=== PATIENT | male | born 1985 | race American Indian/Alaskan Native ===

== ENCOUNTER 2017-07-06 14:44 | Inpatient (IN) | payer SELFPAY ==
--- NOTE | 2017-07-06 15:46 | C.PDOC ---
History Of Present Illness 32 year old male with PMHx of skin cancer and DVT presents to the ED for evaluation of swelling to his left leg. Patient states he has psoriasis in his left foot and some of it is cancerous, patient reports he is using some topical cancer drug for it. Patient reports he recently moved from [place] and currently does not have any doctor up here. Patient states he left leg is swollen and think he might have a blood clot in there. Patient denies fever, chills, nausea, vomit, diarrhea, headache, CP, SOB, weakness, numbness. Time Seen by Provider: 07/06/17 15:11 Chief Complaint (Nursing): Lower Extremity Problem/Injury History Per: Patient History/Exam Limitations: no limitations Onset/Duration Of Symptoms: Days Current Symptoms Are (Timing): Still Present Recent travel outside of the [place]: No Additional History Per: Patient Past Medical History Reviewed: Historical Data, Nursing Documentation, Vital Signs Vital Signs: Last Vital Signs Temp 98.6 F 07/06/17 14:57 Pulse 86 07/06/17 14:57 Resp 18 07/06/17 14:57 BP 122/70 07/06/17 14:57 Pulse Ox 100 07/06/17 18:41 - Medical History PMH: No Chronic Diseases Surgical History: No Surg Hx Family History: States: Unknown Family Hx - Social History Hx Alcohol Use: Yes Hx Substance Use: No - Immunization History Hx Tetanus Toxoid Vaccination: No Hx Influenza Vaccination: No Hx Pneumococcal Vaccination: No Review Of Systems Constitutional: Negative for: Fever, Chills Cardiovascular: Negative for: Chest Pain, Palpitations Respiratory: Negative for: Cough, Shortness of Breath Gastrointestinal: Negative for: Nausea, Vomiting, Abdominal Pain Musculoskeletal: Positive for: Leg Pain. Negative for: Back Pain Skin: Negative for: Rash Neurological: Negative for: Weakness, Numbness Physical Exam - Physical Exam Appears: Non-toxic, No Acute Distress Skin: Normal Color, Warm, Dry Head: Atraumatic, Normacephalic Nose: No Discharge, No Deformity Oral Mucosa: Moist Neck: Normal ROM, Supple Chest: Symmetrical Cardiovascular: Rhythm Regular, No Murmur Respiratory: Normal Breath Sounds, No Rales, No Rhonchi, No Wheezing Gastrointestinal/Abdominal: Soft, No Tenderness, No Guarding, No Rebound Extremity: Normal ROM, Calf Tenderness (left leg), Capillary Refill (< 2 seconds ), No Deformity, Swelling (left leg), Other (dressing on left foot) Pulses: Left Dorsalis Pedis: Normal, Right Dorsalis Pedis: Normal Neurological/Psych: Oriented x3, Normal Speech, Normal Cognition ED Course And Treatment - Laboratory Results Result Diagrams: 07/06/17 16:48 07/06/17 16:48 Lab Interpretation: Normal O2 Sat by Pulse Oximetry: 100 (On RA) Pulse Ox Interpretation: Normal Progress Note: Patient reports he just moved to [place] from [place] and does not have any insurance or MD in area. Doppler study (+) DVT left posterior tibial. Case discussed with hospitalist who agrees to admit. treated with heparin bolus and drip Reassessment Condition: Unchanged - Physician Consult Information Physician Contacted: Dago Damon Outcome Of Conversation: admit Medical Decision Making Medical Decision Making: Impression : swollen left leg Plan: * Labs * UA * Venous Duplex Disposition Discussed With Dr.: Dago Damon Doctor Will See Patient In The: Hospital - Disposition Disposition: HOSPITALIZED Disposition Time: 17:00 Condition: STABLE - POA Present On Arrival: None - Clinical Impression Clinical Impression: Deep venous thrombosis of lower extremity - PA / [employer] / Resident Statement MD/DO has reviewed & agrees with the documentation as recorded. - Scribe Statement The provider has reviewed the documentation as recorded by the Scribe Sukhwinder Ramos All medical record entries made by the Scribe were at my direction and personally dictated by me. I have reviewed the chart and agree that the record accurately reflects my personal performance of the history, physical exam, medical decision making, and the department course for this patient. I have also personally directed, reviewed, and agree with the discharge instructions and disposition. Decision To Admit - Pt Status Changed To: Hospital Disposition Of: Inpatient - Admit Certification Admit to Inpatient:: After my assessment, the patient will require hospitalization for at least two midnights. This is because of the severity of symptoms shown, intensity of services needed, and/or the medical risk in this patient being treated as an outpatient. - InPatient: Physician Admission Certification: I certify that this patient requires 2 or more midnights of care for the following reason:: DVT left leg - . Bed Request Type: Regular Admitting Physician: Dago Damon Patient Diagnosis: Deep venous thrombosis of lower extremity
[2017-07-06 16:52] LABS: BASO % 0.4 % (0.0-2.0); EOS # 0.4 K/uL (0.0-0.7); EOS % 5.3 % (0.0-4.0); HEMOGLOBIN 11.6 g/dL (12.0-18.0); LYMPH # 1.2 K/uL (1.0-4.3); LYMPH % 16.1 % (20.0-40.0); MEAN CELL VOLUME 76.8 fL (80.0-94.0); MEAN CORPUSCULAR HEMOGLOBIN 23.8 pg (27.0-31.0); MEAN PLATELET VOLUME 7.3 fL (7.2-11.7); MONO # 0.7 K/uL (0.0-0.8); MONO % 9.4 % (0.0-10.0); NEUT # 5.3 K/uL (1.8-7.0); NEUT % 68.8 % (50.0-75.0); NRBC % 0.1 % (0.0-2.0); RBC 4.86 Mil/uL (4.40-5.90); RED CELL DISTRIBUTION WIDTH 16.4 % (11.5-14.5); WHITE BLOOD COUNT 7.7 K/uL (4.8-10.8)
[2017-07-06 16:57] LABS: PROTHROMBIN TIME 11.7 SECONDS (9.7-12.2)
[2017-07-06] MEDS ORDERED: Heparin 25,000units in D5W 25,000 UNITS/250 ML BAG IV SCH (16:58)
[2017-07-06 17:04] LABS: ALB/GLOB RATIO 0.8 (1.0-2.1); ALBUMIN 3.6 g/dL (3.5-5.0); ALT/SGPT 49 U/L (21-72); AST/SGOT 43 U/L (17-59); BLOOD UREA NITROGEN 12 mg/dL (9-20); CALCIUM 7.9 mg/dl (8.6-10.4); GFR AFRICAN-AMERICAN > 60; GFR NON-AFRICAN AMERICAN > 60
[2017-07-06 17:23] LABS: URINE BACTERIA OCC (<OCC); URINE BILIRUBIN NEGATIVE (NEGATIVE); URINE BLOOD 1+ (NEGATIVE); URINE CLARITY Clear (Clear); URINE COLOR Yellow (YELLOW); URINE GLUCOSE (UA) NORMAL (Normal); URINE LEUKOCYTE ESTERASE TRACE Leu/uL (Negative); URINE NITRATE NEGATIVE (NEGATIVE); URINE PROTEIN NEGATIVE (NEGATIVE); URINE UROBILINOGEN NORMAL mg/dL (0.2-1.0)
--- NOTE | 2017-07-06 23:21 | CP.PCM.HP ---
<Jerome Newby - Last Filed: 07/07/17 07:02> History of Present Illness - History of Present Illness History of Present Illness: PGY-1 H&P for Dr. Prater CC: Left leg swelling This is a 32 year old male with PMHx Mycosis fungoides stage 2, psoriasis, eczema who presents complaining of left leg swelling. This began 3 days ago. Patient denied any trauma or inciting event but stated that he had a "charley horse" in the leg before he noticed the swelling. Patient states that he is not experiencing pain due to his DVT but usually experiences pains from his cancerous lesions on the feet. Patient states that they are usually a 6/10 and relieved with Ibuprofen. He stated that he does not regularly take NSAIDs. They are exacerbated with prolonged standing and ambulation. Due to this, he wears Dr. Borrego shoes especially at work. Patient denies other acute complaints at this time. Patient states that he has had a blood clot in the past in the left leg on the inner thigh but was not prescribed medication for it. This occurred in the summer of 2016. Patient was diagnosed with mycosis fungoides in January 2016 when he was admitted to [facility] in [place], [place] for sepsis with likely source from his skin. PMHx: Mycosis fungoides stage 2 (diagnosed January 2016), psoriasis, eczema, Left inner thigh DVT in Summer 2016 PSHx: Left ankle surgery in 2010 Allergies: Chocolate Social: Former smoker 1 pack every 2 weeks. Quit in 2016. Social drinker on weekends. 6-7 shots of vodka but not every weekend. Denies drug use. Lives with . Works as improvement nurse worker. Recently moved to [place] from [place]. Family Hx: Mother has heart issues. Grandparents on both sides of the family due to colon cancer in their 60s and 70s. Oncologist: Dr. Gorman in [place], [place]. Home meds: Clobetasol 0.05% cream TID to his affected lesions Present on Admission - Present on Admission Any Indicators Present on Admission: Yes History of DVT/PE: Yes Review of Systems - Constitutional Constitutional: absent: Chills, Fever - EENT Eyes: absent: Change in Vision Ears: absent: Decreased Hearing Nose/Mouth/Throat: absent: Nasal Congestion - Cardiovascular Cardiovascular: absent: Chest Pain - Respiratory Respiratory: absent: Dyspnea - Gastrointestinal Gastrointestinal: absent: Abdominal Pain, Constipation, Diarrhea, Nausea, Vomiting - Genitourinary Genitourinary: absent: Dysuria - Musculoskeletal Musculoskeletal: Other (foot pain from lesions) - Integumentary Integumentary: Lesions (chronic), Swelling (left leg) - Neurological Neurological: absent: Numbness, Tingling, Weakness - Psychiatric Psychiatric: absent: Anxiety - Endocrine Endocrine: absent: Fatigue, Palpitations Past Patient History - Past Social History Smoking Status: Former Smoker - INTEGUMENTARY Hx Dermatological Problems: Yes Other/Comment: STAGE II SKIN CANCER - PSYCHIATRIC Hx Substance Use: No - SURGICAL HISTORY Hx Surgeries: Yes Other/Comment: LEFT ANKLE SX Meds Allergies/Adverse Reactions: Allergies Allergy/AdvReac Type Severity Reaction Status Date / Time chocolate flavor Allergy Severe RASH Verified 07/06/17 15:00 Physical Exam - Constitutional Appears: No Acute Distress - Head Exam Head Exam: ATRAUMATIC, NORMOCEPHALIC - Eye Exam Eye Exam: EOMI, PERRL - ENT Exam ENT Exam: Mucous Membranes Moist - Respiratory Exam Respiratory Exam: Clear to Auscultation Bilateral. absent: Rales, Rhonchi, Wheezes - Cardiovascular Exam Cardiovascular Exam: REGULAR RHYTHM, +S1, +S2 - GI/Abdominal Exam GI & Abdominal Exam: Normal Bowel Sounds, Soft. absent: Tenderness Additional comments: obese body habitus - Extremities Exam Extremities exam: Positive for: pedal edema (left leg), pedal pulses present. Negative for: tenderness - Neurological Exam Neurological exam: Alert, CN II-XII Intact, Oriented x3 - Psychiatric Exam Psychiatric exam: Normal Affect, Normal Mood - Skin Additional comments: Lesions on both soles of the feet demonstrate mycosis fungoides. Lesions on both inner thighs represent keratosis. Lesions on the armpits and chest demonstrate mix of mycosis fungoides and eczema. Keratosis on the wrists. Fullness in the left groin palpated with deep palpation. Results - Vital Signs Recent Vital Signs: Last Vital Signs Temp 98.5 F 07/06/17 22:34 Pulse 77 07/06/17 22:34 Resp 20 07/06/17 22:34 BP 119/65 07/06/17 22:34 Pulse Ox 100 07/06/17 22:34 - Labs Result Diagrams: 07/06/17 16:48 07/06/17 16:48 Labs: Laboratory Results - last 24 hr 07/06/17 07/06/17 07/06/17 16:48 16:48 16:48 WBC 7.7 RBC 4.86 Hgb 11.6 L Hct 37.3 MCV 76.8 L MCH 23.8 L MCHC 31.0 L RDW 16.4 H Plt Count 333 MPV 7.3 Neut % (Auto) 68.8 Lymph % (Auto) 16.1 L Mcdonald % (Auto) 9.4 Eos % (Auto) 5.3 H Baso % (Auto) 0.4 Neut # 5.3 Lymph # 1.2 Mcdonald # 0.7 Eos # 0.4 Baso # 0.0 PT 11.7 INR 1.0 Sodium 134 Potassium 3.8 Chloride 104 Carbon Dioxide 24 Anion Gap 10 BUN 12 Creatinine 0.8 Est GFR ( Amer) > 60 Est GFR (Non-Af Amer) > 60 Random Glucose 99 Calcium 7.9 L Total Bilirubin 0.3 AST 43 ALT 49 Alkaline Phosphatase 56 Total Protein 8.0 Albumin 3.6 Globulin 4.4 H Albumin/Globulin Ratio 0.8 L Urine Color Urine Clarity Urine pH Ur Specific [place] Urine Protein Urine Glucose (UA) Urine Ketones Urine Blood Urine Nitrate Urine Bilirubin Urine Urobilinogen Ur Leukocyte Esterase Urine WBC (Auto) Urine RBC (Auto) Urine Bacteria 07/06/17 17:01 WBC RBC Hgb Hct MCV MCH MCHC RDW Plt Count MPV Neut % (Auto) Lymph % (Auto) Mcdonald % (Auto) Eos % (Auto) Baso % (Auto) Neut # Lymph # Mcdonald # Eos # Baso # PT INR Sodium Potassium Chloride Carbon Dioxide Anion Gap BUN Creatinine Est GFR ( Amer) Est GFR (Non-Af Amer) Random Glucose Calcium Total Bilirubin AST ALT Alkaline Phosphatase Total Protein Albumin Globulin Albumin/Globulin Ratio Urine Color Yellow Urine Clarity Clear Urine pH 6.0 Ur Specific [place] 1.020 Urine Protein Negative Urine Glucose (UA) Normal Urine Ketones Negative Urine Blood 1+ H Urine Nitrate Negative Urine Bilirubin Negative Urine Urobilinogen Normal Ur Leukocyte Esterase Trace Urine WBC (Auto) 2 Urine RBC (Auto) 18 H Urine Bacteria Occ H Assessment & Plan - Assessment and Plan (Free Text) Plan: Deep Vein Thrombosis US preliminary reading demonstrated left posterior tibial DVT Was on Heparin drip in the ED. This was discontinued and switched to Eliquis. Started Eliquis 10 mg PO BID in the evening of admission. Per guidelines, patient will need 1 week of this dose of Eliquis before transitioning to 5 mg PO BID. Left groin mass As reported in preliminary ultrasound. F/u official US report Of note on the same extremity, patient states that he had a clot in the left inner thigh for which he was not prescribed medication. Unclear whether that clot was superficial or not. History of Mycosis Fungoides Stage 2 per patient Continued home Clobetasol 0.05% cream TID Oncologist Dr. Strickland consulted, help appreciated Due to weakening of skin caused by the use of corticosteroids, patient was placed on Doxycycline 100 mg PO BID. Per patient, he also used to be on this in the past. Prophylactic Measure Eliquis 10 mg PO BID Protonix 40 mg PO daily Regular diet SCDs contraindicated Case DW Dr. Moi Newby PGY-1 <Ibrahima Prater P - Last Filed: 07/07/17 08:09> Results - Vital Signs Recent Vital Signs: Last Vital Signs Temp 97.8 F 07/07/17 06:32 Pulse 79 07/07/17 06:32 Resp 17 07/07/17 06:32 BP 108/66 07/07/17 06:32 Pulse Ox 100 07/07/17 06:32 - Labs Result Diagrams: 07/06/17 16:48 07/06/17 16:48 Labs: Laboratory Results - last 24 hr 07/06/17 07/06/17 07/06/17 16:48 16:48 16:48 WBC 7.7 RBC 4.86 Hgb 11.6 L Hct 37.3 MCV 76.8 L MCH 23.8 L MCHC 31.0 L RDW 16.4 H Plt Count 333 MPV 7.3 Neut % (Auto) 68.8 Lymph % (Auto) 16.1 L Mcdonald % (Auto) 9.4 Eos % (Auto) 5.3 H Baso % (Auto) 0.4 Neut # 5.3 Lymph # 1.2 Mcdonald # 0.7 Eos # 0.4 Baso # 0.0 PT 11.7 INR 1.0 APTT Sodium 134 Potassium 3.8 Chloride 104 Carbon Dioxide 24 Anion Gap 10 BUN 12 Creatinine 0.8 Est GFR ( Amer) > 60 Est GFR (Non-Af Amer) > 60 Random Glucose 99 Calcium 7.9 L Total Bilirubin 0.3 AST 43 ALT 49 Alkaline Phosphatase 56 Total Protein 8.0 Albumin 3.6 Globulin 4.4 H Albumin/Globulin Ratio 0.8 L Urine Color Urine Clarity Urine pH Ur Specific [place] Urine Protein Urine Glucose (UA) Urine Ketones Urine Blood Urine Nitrate Urine Bilirubin Urine Urobilinogen Ur Leukocyte Esterase Urine WBC (Auto) Urine RBC (Auto) Urine Bacteria 07/06/17 07/07/17 17:01 00:02 WBC RBC Hgb Hct MCV MCH MCHC RDW Plt Count MPV Neut % (Auto) Lymph % (Auto) Mcdonald % (Auto) Eos % (Auto) Baso % (Auto) Neut # Lymph # Mcdonald # Eos # Baso # PT INR APTT 65 H Sodium Potassium Chloride Carbon Dioxide Anion Gap BUN Creatinine Est GFR ( Amer) Est GFR (Non-Af Amer) Random Glucose Calcium Total Bilirubin AST ALT Alkaline Phosphatase Total Protein Albumin Globulin Albumin/Globulin Ratio Urine Color Yellow Urine Clarity Clear Urine pH 6.0 Ur Specific [place] 1.020 Urine Protein Negative Urine Glucose (UA) Normal Urine Ketones Negative Urine Blood 1+ H Urine Nitrate Negative Urine Bilirubin Negative Urine Urobilinogen Normal Ur Leukocyte Esterase Trace Urine WBC (Auto) 2 Urine RBC (Auto) 18 H Urine Bacteria Occ H Attending/Attestation - Attestation I have personally seen and examined this patient.: Yes I have fully participated in the care of the patient.: Yes I have reviewed all pertinent clinical information: Yes Notes (Text): Assessment * New left PT DVT * ? left groin mass will f/u usg findings with radiology * H/o mycosis fungoides lessions, eczema, ? psoriasis, patient knows where mycosis fungoides lesions local colbetasol 0.05% tid. Plan * Eliquis 10mg bid x7d, then 5mg bid * Empiric 5-7 days of doxycycline as skin break present form skin lesions with edema form dvt * Hematology consult * Out patient dermatology f/u * F/u on left groin mass report.
[2017-07-07] MEDS: Pantoprazole 40 mg EC Tab PO SCH (10:14)
[2017-07-07 10:55] LABS: BASO % 0.7 % (0.0-2.0); EOS # 0.4 K/uL (0.0-0.7); EOS % 5.5 % (0.0-4.0); HEMOGLOBIN 11.6 g/dL (12.0-18.0); LYMPH # 1.1 K/uL (1.0-4.3); LYMPH % 16.6 % (20.0-40.0); MEAN CELL VOLUME 76.6 fL (80.0-94.0); MEAN CORPUSCULAR HEMOGLOBIN 24.2 pg (27.0-31.0); MEAN CORPUSCULAR HGB CONC 31.6 g/dL (33.0-37.0); MONO # 0.7 K/uL (0.0-0.8); MONO % 10.9 % (0.0-10.0); NEUT # 4.3 K/uL (1.8-7.0); NEUT % 66.3 % (50.0-75.0); RBC 4.79 Mil/uL (4.40-5.90); RED CELL DISTRIBUTION WIDTH 16.5 % (11.5-14.5); WHITE BLOOD COUNT 6.4 K/uL (4.8-10.8)
[2017-07-07 12:08] LABS: ALB/GLOB RATIO 0.8 (1.0-2.1); ALBUMIN 3.5 g/dL (3.5-5.0); ALT/SGPT 52 U/L (21-72); AST/SGOT 46 U/L (17-59); BLOOD UREA NITROGEN 7 mg/dL (9-20); CALCIUM 7.7 mg/dl (8.6-10.4); GFR AFRICAN-AMERICAN > 60; GFR NON-AFRICAN AMERICAN > 60
--- NOTE | 2017-07-07 13:37 | VASCLAB ---
PROCEDURE: Lower Extremity Venous Duplex Exam. HISTORY: pain PRIORS: None. TECHNIQUE: Bilateral common femoral, femoral, popliteal and posterior tibial, peroneal and great saphenous veins were evaluated. Flow was assessed with color Doppler, compressibility, assessment of phasic flow and augmentation response. Report prepared by REINALDO Mayorga, RVT FINDINGS: RIGHT: 1. Common Femoral Vein: 1.1. Compressibility - Fully compressible: Thrombus - None : Flow - Phasic: Augmentation -Normal: Reflux - None. 2. Femoral Vein: 2.1. Compressibility - Fully compressible: Thrombus - None : Flow - Phasic: Augmentation -Normal: Reflux - None. 3. Popliteal Vein: 3.1. Compressibility - Fully compressible: Thrombus - None : Flow - Phasic: Augmentation -Normal: Reflux - None. 4. Posterior Tibial Vein: 4.1. Compressibility - Fully compressible: Thrombus - None: Flow - Phasic: Augmentation -Normal: Reflux - None. 5. Peroneal Vein: 5.1. Compressibility - Fully compressible: Thrombus - None: Flow - Phasic: Augmentation -Normal: Reflux - None. 6. Great Saphenous Vein: 6.1. Compressibility - Fully compressible: Thrombus - None: Flow - Phasic: Augmentation - Normal: Reflux - None. LEFT: 1. Common Femoral Vein: 1.1. Compressibility - Fully compressible: Thrombus - None: Flow - Phasic: Augmentation -Normal: Reflux - None. 2. Femoral Vein: 2.1. Compressibility - Fully compressible: Thrombus - None: Flow - Phasic: Augmentation -Normal: Reflux - None. 3. Popliteal Vein: 3.1. Compressibility - Fully compressible: Thrombus - None : Flow - Phasic: Augmentation -Normal: Reflux - None. 4. Posterior Tibial Vein: 4.1. Compressibility - Fully compressible: Thrombus - None: Flow - Phasic: Augmentation -Normal: Reflux - None. 5. Peroneal Vein: 5.1. Compressibility - : Thrombus - : Flow - : Augmentation -: Reflux - . 6. Great Saphenous Vein: 6.1. Compressibility - Fully compressible: Thrombus - None: Flow - Phasic: Augmentation - Normal: Reflux - None. OTHER FINDINGS: Dr. Ocasio notified about the findings. Due to swelling in the calf, the left peroneal vein was not visualized. Multiple vascularlized masses noted in both groin areas. IMPRESSION: Right: No evidence of deep or superficial vein thrombosis of the right lower extremity. Normal valve function noted of the right side. Left: Acute thrombosis of the left posterior tibial vein with severe reduction of the venous return.
--- NOTE | 2017-07-07 15:48 | CP.PCM.CON ---
History of Present Illness - History of Present Illness History of Present Illness: 32 year old male with a history of Mycosis fungoides stage 2 dx 2016 on topical treatment, admitted with left leg pain, found to have an acute tibial DVT. The patient reports to being awoken in the middle of the night 3 days ago with calf cramping. The pain has not abated and prompted him to come to the ER. He denies shortness of breath. He is active and denies prolonged immobility or trauma to his extremities. Past medical history: Mycosis fungoides stage 2 Past surgical history: None Family history: Prostate cancer and colon cancer in grandparents Social history: Drinks 6 beers twice weekly Allergies: NKDA Review of systems: All remaining review of systems including HEENT, cardiovacsular, respiratory, gastrointestinal, genitourinary, musculoskeletal, dermatologic, neurologic, and psychiatric are negative unless mentioned in the HPI. Past Patient History - Past Social History Smoking Status: Former Smoker - CARDIAC Hx Peripheral Edema: Yes - NEUROLOGICAL Hx Vertigo: Yes - HEMATOLOGICAL/ONCOLOGICAL Hx Cancer: Yes Hx Chemotherapy: Yes - INTEGUMENTARY Hx Dermatological Problems: Yes Hx Eczema: Yes Hx Psoriasis: Yes Other/Comment: STAGE II SKIN CANCER - MUSCULOSKELETAL/RHEUMATOLOGICAL Hx Falls: No Hx Fractures: Yes (L ankle with plate and 6 screws) - PSYCHIATRIC Hx Substance Use: No - SURGICAL HISTORY Hx Surgeries: Yes Other/Comment: LEFT ANKLE SX - ANESTHESIA Hx Anesthesia: Yes Hx Anesthesia Reactions: No Hx Malignant Hyperthermia: No Meds Allergies/Adverse Reactions: Allergies Allergy/AdvReac Type Severity Reaction Status Date / Time chocolate flavor Allergy Severe RASH Verified 07/06/17 15:00 - Medications Medications: Current Medications Apixaban (Eliquis) 10 mg PO BID [facility] Last Admin: 07/07/17 10:14 Dose: 10 mg Clobetasol Propionate (Temovate 0.05% Ointment) 1 applic TOP TID [facility] Last Admin: 07/06/17 22:27 Dose: 1 applic Doxycycline Hyclate (Doryx) 100 mg PO Q12H [facility] Last Admin: 07/07/17 12:08 Dose: 100 mg Pantoprazole Sodium (Protonix Ec Tab) 40 mg PO DAILY [facility] Last Admin: 07/07/17 10:14 Dose: 40 mg Pneumococcal Polyvalent Vaccine (Pneumovax 23 Vaccine) 0.5 ml IM .ONCE ONE Stop: 07/09/17 10:01 Physical Exam - Head Exam Head Exam: ATRAUMATIC - Eye Exam Eye Exam: Normal appearance - ENT Exam ENT Exam: Mucous Membranes Dry - Respiratory Exam Respiratory Exam: NORMAL BREATHING PATTERN - Cardiovascular Exam Cardiovascular Exam: +S1, +S2 - GI/Abdominal Exam GI & Abdominal Exam: Normal Bowel Sounds - Extremities Exam Extremities exam: Positive for: pedal edema - Neurological Exam Neurological exam: Oriented x3 - Psychiatric Exam Psychiatric exam: Normal Affect, Normal Mood - Skin Skin Exam: Warm Results - Vital Signs Recent Vital Signs: Last Vital Signs Temp 97.9 F 07/07/17 08:40 Pulse 69 07/07/17 08:40 Resp 20 07/07/17 08:40 BP 119/72 07/07/17 08:40 Pulse Ox 98 07/07/17 08:40 - Labs Result Diagrams: 07/07/17 10:49 07/07/17 10:49 Labs: Laboratory Results - last 24 hr 07/06/17 07/06/17 07/06/17 16:48 16:48 16:48 WBC 7.7 RBC 4.86 Hgb 11.6 L Hct 37.3 MCV 76.8 L MCH 23.8 L MCHC 31.0 L RDW 16.4 H Plt Count 333 MPV 7.3 Neut % (Auto) 68.8 Lymph % (Auto) 16.1 L [place] % (Auto) 9.4 Eos % (Auto) 5.3 H Baso % (Auto) 0.4 Neut # 5.3 Lymph # 1.2 [place] # 0.7 Eos # 0.4 Baso # 0.0 Retic Count PT 11.7 INR 1.0 APTT Sodium 134 Potassium 3.8 Chloride 104 Carbon Dioxide 24 Anion Gap 10 BUN 12 Creatinine 0.8 Est GFR ( Amer) > 60 Est GFR (Non-Af Amer) > 60 Random Glucose 99 Calcium 7.9 L Total Bilirubin 0.3 AST 43 ALT 49 Alkaline Phosphatase 56 Total Protein 8.0 Albumin 3.6 Globulin 4.4 H Albumin/Globulin Ratio 0.8 L Urine Color Urine Clarity Urine pH Ur Specific [place] Urine Protein Urine Glucose (UA) Urine Ketones Urine Blood Urine Nitrate Urine Bilirubin Urine Urobilinogen Ur Leukocyte Esterase Urine WBC (Auto) Urine RBC (Auto) Urine Bacteria 07/06/17 07/07/17 07/07/17 17:01 00:02 10:49 WBC 6.4 RBC 4.79 Hgb 11.6 L Hct 36.7 MCV 76.6 L MCH 24.2 L MCHC 31.6 L RDW 16.5 H Plt Count 338 MPV 8.0 Neut % (Auto) 66.3 Lymph % (Auto) 16.6 L [place] % (Auto) 10.9 H Eos % (Auto) 5.5 H Baso % (Auto) 0.7 Neut # 4.3 Lymph # 1.1 [place] # 0.7 Eos # 0.4 Baso # 0.0 Retic Count 1.1 PT INR APTT 65 H Sodium Potassium Chloride Carbon Dioxide Anion Gap BUN Creatinine Est GFR ( Amer) Est GFR (Non-Af Amer) Random Glucose Calcium Total Bilirubin AST ALT Alkaline Phosphatase Total Protein Albumin Globulin Albumin/Globulin Ratio Urine Color Yellow Urine Clarity Clear Urine pH 6.0 Ur Specific [place] 1.020 Urine Protein Negative Urine Glucose (UA) Normal Urine Ketones Negative Urine Blood 1+ H Urine Nitrate Negative Urine Bilirubin Negative Urine Urobilinogen Normal Ur Leukocyte Esterase Trace Urine WBC (Auto) 2 Urine RBC (Auto) 18 H Urine Bacteria Occ H 07/07/17 10:49 WBC RBC Hgb Hct MCV MCH MCHC RDW Plt Count MPV Neut % (Auto) Lymph % (Auto) [place] % (Auto) Eos % (Auto) Baso % (Auto) Neut # Lymph # [place] # Eos # Baso # Retic Count PT INR APTT Sodium 135 Potassium 3.8 Chloride 104 Carbon Dioxide 25 Anion Gap 9 L BUN 7 L Creatinine 0.7 L Est GFR ( Amer) > 60 Est GFR (Non-Af Amer) > 60 Random Glucose 89 Calcium 7.7 L Total Bilirubin 0.4 AST 46 ALT 52 Alkaline Phosphatase 53 Total Protein 7.9 Albumin 3.5 Globulin 4.3 H Albumin/Globulin Ratio 0.8 L Urine Color Urine Clarity Urine pH Ur Specific [place] Urine Protein Urine Glucose (UA) Urine Ketones Urine Blood Urine Nitrate Urine Bilirubin Urine Urobilinogen Ur Leukocyte Esterase Urine WBC (Auto) Urine RBC (Auto) Urine Bacteria Assessment & Plan (1) Deep venous thrombosis of lower extremity Assessment and Plan: therapeutic anticoagulation ? provoked from malignancy ? inherited thrombophilia; w/u sent Status: Acute (2) Anemia Assessment and Plan: rule out iron deficiency, rule out hemoglobinopathy Status: Acute (3) Coagulopathy Assessment and Plan: anticoagulation Status: Acute (4) Mycosis fungoides Assessment and Plan: outpatient treatment Thank you for this interesting consult. Status: Acute
[2017-07-07 16:09] LABS: FERRITIN 85.6 ng/mL
[2017-07-07 17:45] LABS: IRON 29 ug/dL (49-181)
[2017-07-07 17:55] LABS: TOTAL IRON BINDING CAPACITY 307 ug/dL (250-450)
[2017-07-07 18:06] LABS: % IRON SATURATION 9 (20-55)
--- NOTE | 2017-07-07 20:31 | CP.PCM.PN ---
Subjective - Date & Time of Evaluation Date of Evaluation: 07/07/17 Time of Evaluation: 17:29 - Subjective Subjective: Patient has been seen and examined. No overnight events reported. patient has no complaints at this time. Denies any lower ext. tenderness. He states the lower left ext. swelling decreased tremendously overnight. Objective - Vital Signs/Intake and Output Vital Signs (last 24 hours): Temp Pulse Resp BP Pulse Ox 98.2 F 82 20 122/75 100 07/07/17 15:00 07/07/17 15:00 07/07/17 15:00 07/07/17 15:00 07/07/17 15:00 - Medications Medications: Current Medications Apixaban (Eliquis) 10 mg PO BID [facility] Last Admin: 07/07/17 17:03 Dose: 10 mg Clobetasol Propionate (Temovate 0.05% Ointment) 1 applic TOP TID [facility] Last Admin: 07/06/17 22:27 Dose: 1 applic Doxycycline Hyclate (Doryx) 100 mg PO Q12H [facility] Last Admin: 07/07/17 12:08 Dose: 100 mg Pantoprazole Sodium (Protonix Ec Tab) 40 mg PO DAILY [facility] Last Admin: 07/07/17 10:14 Dose: 40 mg Pneumococcal Polyvalent Vaccine (Pneumovax 23 Vaccine) 0.5 ml IM .ONCE ONE Stop: 07/09/17 10:01 - Labs Labs: 07/07/17 10:49 07/07/17 10:49 PT 11.7 SECONDS (9.7-12.2) 07/06/17 16:48 INR 1.0 07/06/17 16:48 APTT 65 SECONDS (21-34) H 07/07/17 00:02 - Constitutional Appears: Well, Non-toxic, No Acute Distress - Head Exam Head Exam: ATRAUMATIC, NORMAL INSPECTION, NORMOCEPHALIC - Eye Exam Eye Exam: EOMI, Normal appearance - ENT Exam ENT Exam: Mucous Membranes Moist - Neck Exam Neck Exam: Full ROM - Respiratory Exam Respiratory Exam: Clear to Ausculation Bilateral, NORMAL BREATHING PATTERN. absent: Rales, Rhonchi, Wheezes - Cardiovascular Exam Cardiovascular Exam: RRR, +S1, +S2 - GI/Abdominal Exam GI & Abdominal Exam: Soft, Normal Bowel Sounds. absent: Tenderness - Rectal Exam Rectal Exam: NORMAL INSPECTION. absent: Black Stool, Bloody Stool, Hemorrhoids , Fecal Impaction Additional comments: No Masses - Exam Additional comments: Fullness in the left groin palpated with deep palpation, non-tender - Extremities Exam Extremities Exam: absent: Tenderness Additional comments: Left Lower Ext. Edema. Non-Pitting (Improved per patient) - Neurological Exam Neurological Exam: Alert, Awake, Oriented x3 - Skin Additional comments: Lesions on both soles of the feet demonstrate mycosis fungoides. Lesions on both inner thighs represent keratosis. Lesions on the armpits and chest demonstrate mix of mycosis fungoides and eczema. Keratosis on the wrists. Assessment and Plan - Assessment and Plan (Free Text) Assessment: 32 year old male with PMHx Mycosis fungoides stage 2, psoriasis, and eczema admitted for Left Lower Ext. DVT Plan: Deep Vein Thrombosis US preliminary reading demonstrated left posterior tibial DVT Cont. Eliquis 10 mg PO BID in the evening of admission. Per guidelines, patient will need 1 week of Eliquis 10 BID before transitioning to 5 mg PO BID. Will give Eliquis coupon before DC Anemia Heme/Onc (Dr. Strickland) Consulted - Anemia workup ordered - F/U Stool Occult Blood - NEGATIVE Normal Rectal Exam Left groin mass US read: Multiple vascularlized masses noted in both groin area Of note on the same extremity, patient states that he had a clot in the left inner thigh for which he was not prescribed medication. Unclear whether that clot was superficial or not. Per patient, he has already had the groin mass worked-up 2 years ago. History of Mycosis Fungoides Stage 2 per patient Continued home Clobetasol 0.05% cream TID Oncologist Dr. Strickland consulted, help appreciated Due to weakening of skin caused by the use of corticosteroids, patient was placed on Doxycycline 100 mg PO BID. Per patient, he also used to be on this in the past. Prophylactic Measure Eliquis 10 mg PO BID Protonix 40 mg PO daily Regular diet SCDs contraindicated Patient discussed with Attending Ariana Garcia - PGY1
[2017-07-08 08:08] VITALS: RESP 20
[2017-07-08] MEDS: Pantoprazole 40 mg EC Tab PO SCH (09:30)
[2017-07-08 15:31] VITALS: BP 115/66; PULSE 95; TEMP 98.5; O2SAT 99
--- NOTE | 2017-07-08 16:35 | CP.PCM.DIS ---
<Jean-Pierre Singh - Last Filed: 07/08/17 16:32> Provider - Provider Date of Admission: 07/06/17 17:06 Attending physician: Dago Damon MD Primary care physician: Oncologist: Dr. Gorman in [place], [place]. Consults: Heme/Onc: Dr Strickland Time Spent in preparation of Discharge (in minutes): 44 Hospital Course - Lab Results Lab Results: Most Recent Lab Values WBC 6.4 K/uL (4.8-10.8) 07/07/17 10:49 RBC 4.79 Mil/uL (4.40-5.90) 07/07/17 10:49 Hgb 11.6 g/dL (12.0-18.0) L 07/07/17 10:49 Hct 36.7 % (35.0-51.0) 07/07/17 10:49 MCV 76.6 fL (80.0-94.0) L 07/07/17 10:49 MCH 24.2 pg (27.0-31.0) L 07/07/17 10:49 MCHC 31.6 g/dL (33.0-37.0) L 07/07/17 10:49 RDW 16.5 % (11.5-14.5) H 07/07/17 10:49 Plt Count 338 K/uL (130-400) 07/07/17 10:49 MPV 8.0 fL (7.2-11.7) 07/07/17 10:49 Neut % (Auto) 66.3 % (50.0-75.0) 07/07/17 10:49 Lymph % (Auto) 16.6 % (20.0-40.0) L 07/07/17 10:49 Forest % (Auto) 10.9 % (0.0-10.0) H 07/07/17 10:49 Eos % (Auto) 5.5 % (0.0-4.0) H 07/07/17 10:49 Baso % (Auto) 0.7 % (0.0-2.0) 07/07/17 10:49 Neut # 4.3 K/uL (1.8-7.0) 07/07/17 10:49 Lymph # 1.1 K/uL (1.0-4.3) 07/07/17 10:49 Forest # 0.7 K/uL (0.0-0.8) 07/07/17 10:49 Eos # 0.4 K/uL (0.0-0.7) 07/07/17 10:49 Baso # 0.0 K/uL (0.0-0.2) 07/07/17 10:49 Retic Count 1.1 % (0.5-1.5) 07/07/17 10:49 PT 11.7 SECONDS (9.7-12.2) 07/06/17 16:48 INR 1.0 07/06/17 16:48 APTT 34 SECONDS (21-34) D 07/08/17 07:14 Sodium 135 mmol/L (132-148) 07/07/17 10:49 Potassium 3.8 mmol/L (3.6-5.2) 07/07/17 10:49 Chloride 104 mmol/L (98-107) 07/07/17 10:49 Carbon Dioxide 25 mmol/L (22-30) 07/07/17 10:49 Anion Gap 9 (10-20) L 07/07/17 10:49 BUN 7 mg/dL (9-20) L 07/07/17 10:49 Creatinine 0.7 mg/dL (0.8-1.5) L 07/07/17 10:49 Est GFR ( Amer) > 60 07/07/17 10:49 Est GFR (Non-Af Amer) > 60 07/07/17 10:49 Random Glucose 89 mg/dL (75-110) 07/07/17 10:49 Calcium 7.7 mg/dl (8.6-10.4) L 07/07/17 10:49 Iron 29 ug/dL (49-181) L 07/07/17 17:17 TIBC 307 ug/dL (250-450) 07/07/17 17:17 % Saturation 9 (20-55) L 07/07/17 17:17 Ferritin 85.6 ng/mL 07/07/17 10:49 Total Bilirubin 0.4 mg/dL (0.2-1.3) 07/07/17 10:49 AST 46 U/L (17-59) 07/07/17 10:49 ALT 52 U/L (21-72) 07/07/17 10:49 Alkaline Phosphatase 53 U/L (38-126) 07/07/17 10:49 Total Protein 7.9 g/dL (6.3-8.3) 07/07/17 10:49 Albumin 3.5 g/dL (3.5-5.0) 07/07/17 10:49 Globulin 4.3 gm/dL (2.2-3.9) H 07/07/17 10:49 Albumin/Globulin Ratio 0.8 (1.0-2.1) L 07/07/17 10:49 Vitamin B12 262 pg/mL (239-931) 07/07/17 10:49 Folate 10.0 ng/mL 07/07/17 10:49 Urine Color Yellow (YELLOW) 07/06/17 17:01 Urine Clarity Clear (Clear) 07/06/17 17:01 Urine pH 6.0 (5.0-8.0) 07/06/17 17:01 Ur Specific [place] 1.020 (1.003-1.030) 07/06/17 17:01 Urine Protein Negative mg/dL (NEGATIVE) 07/06/17 17:01 Urine Glucose (UA) Normal mg/dL (Normal) 07/06/17 17:01 Urine Ketones Negative mg/dL (NEGATIVE) 07/06/17 17:01 Urine Blood 1+ (NEGATIVE) H 07/06/17 17:01 Urine Nitrate Negative (NEGATIVE) 07/06/17 17:01 Urine Bilirubin Negative (NEGATIVE) 07/06/17 17:01 Urine Urobilinogen Normal mg/dL (0.2-1.0) 07/06/17 17:01 Ur Leukocyte Esterase Trace Reji/uL (Negative) 07/06/17 17:01 Urine WBC (Auto) 2 /hpf (0-5) 07/06/17 17:01 Urine RBC (Auto) 18 /hpf (0-3) H 07/06/17 17:01 Urine Bacteria Occ (<OCC) H 07/06/17 17:01 - Hospital Course Hospital Course: PGY-1 H&P for Dr. Prater CC: Left leg swelling This is a 32 year old male with PMHx Mycosis fungoides stage 2, psoriasis, eczema who presents complaining of left leg swelling. This began 3 days ago. Patient denied any trauma or inciting event but stated that he had a "charley horse" in the leg before he noticed the swelling. Patient states that he is not experiencing pain due to his DVT but usually experiences pains from his cancerous lesions on the feet. Patient states that they are usually a 6/10 and relieved with Ibuprofen. He stated that he does not regularly take NSAIDs. They are exacerbated with prolonged standing and ambulation. Due to this, he wears Dr. Borrego shoes especially at work. Patient denies other acute complaints at this time. Patient states that he has had a blood clot in the past in the left leg on the inner thigh but was not prescribed medication for it. This occurred in the summer of 2016. Patient was diagnosed with mycosis fungoides in January 2016 when he was admitted to [facility] in [place], [place] for sepsis with likely source from his skin. PMHx: Mycosis fungoides stage 2 (diagnosed January 2016), psoriasis, eczema, Left inner thigh DVT in Summer 2016 PSHx: Left ankle surgery in 2010 Allergies: Chocolate Social: Former smoker 1 pack every 2 weeks. Quit in 2016. Social drinker on weekends. 6-7 shots of vodka but not every weekend. Denies drug use. Lives with . Works as pets salesperson worker. Recently moved to [place] from [place]. Family Hx: Mother has heart issues. Grandparents on both sides of the family due to colon cancer in their 60s and 70s. Oncologist: Dr. Gorman in [place], [place]. Home meds: Clobetasol 0.05% cream TID to his affected lesions Hospital Course: This patient was admitted due to left leg swelling due to deep vein thrombosis. Venous duplex scan of the lower extremity (details shown below ) showed acute thrombosis of the left posterior tibial vein with severe reduction of venous return. Patient was started on a heparin drip in the ED and switched to Eliquis on the floor. He is currently on 10 mg PO BID of Eliquis and will be transitioned to 5 mg PO BID. His symptoms improved during stay and he is not currently experiencing symptoms of DVT. Patient also has anemia. Heme-Onc was consulted Anemia work up was done, stool occult blood was negative and rectal exam was normal. Current HgB level is 11.6 with an Iron level of 29. He also had a left groin mass. Ultrasound was ordered and showed multiple vascularized masses in both groin areas. His chronic medical condition of Mycosis Fungiodes was managed appropriately. Last progress note is shown below for a more detailed picture of this hospital stay: Deep Vein Thrombosis US preliminary reading demonstrated left posterior tibial DVT Cont. Eliquis 10 mg PO BID in the evening of admission. Per guidelines, patient will need 1 week of Eliquis 10 BID before transitioning to 5 mg PO BID. Will give Eliquis coupon before DC Anemia Heme/Onc (Dr. Strickland) Consulted - Anemia workup ordered - F/U Stool Occult Blood - NEGATIVE Normal Rectal Exam Left groin mass US read: Multiple vascularlized masses noted in both groin area Of note on the same extremity, patient states that he had a clot in the left inner thigh for which he was not prescribed medication. Unclear whether that clot was superficial or not. Per patient, he has already had the groin mass worked-up 2 years ago. History of Mycosis Fungoides Stage 2 per patient Continued home Clobetasol 0.05% cream TID Oncologist Dr. Strickland consulted, help appreciated Due to weakening of skin caused by the use of corticosteroids, patient was placed on Doxycycline 100 mg PO BID. Per patient, he also used to be on this in the past. Prophylactic Measure Eliquis 10 mg PO BID Protonix 40 mg PO daily Regular diet SCDs contraindicated Discharge Exam - Head Exam Head Exam: ATRAUMATIC, NORMAL INSPECTION, NORMOCEPHALIC - Additional Findings Additional findings: - Constitutional Appears: Well, Non-toxic, No Acute Distress - Head Exam Head Exam: ATRAUMATIC, NORMAL INSPECTION, NORMOCEPHALIC - Eye Exam Eye Exam: EOMI, Normal appearance - ENT Exam ENT Exam: Mucous Membranes Moist - Neck Exam Neck Exam: Full ROM - Respiratory Exam Respiratory Exam: Clear to Ausculation Bilateral, NORMAL BREATHING PATTERN. absent: Rales, Rhonchi, Wheezes - Cardiovascular Exam Cardiovascular Exam: RRR, +S1, +S2 - GI/Abdominal Exam GI & Abdominal Exam: Soft, Normal Bowel Sounds. absent: Tenderness - Rectal Exam Rectal Exam: NORMAL INSPECTION. absent: Black Stool, Bloody Stool, Hemorrhoids , Fecal Impaction Additional comments: No Masses - Exam Additional comments: Fullness in the left groin palpated with deep palpation, non-tender - Extremities Exam Extremities Exam: absent: Tenderness Additional comments: Left Lower Ext. Edema. Non-Pitting (Improved per patient) - Neurological Exam Neurological Exam: Alert, Awake, Oriented x3 - Skin Additional comments: Lesions on both soles of the feet demonstrate mycosis fungoides. Lesions on both inner thighs represent keratosis. Lesions on the armpits and chest demonstrate mix of mycosis fungoides and eczema. Keratosis on the wrists. Discharge Plan - Discharge Medications Prescriptions: Apixaban [Eliquis] 5 mg PO BID #74 tab Clobetasol 0.05% [Temovate 0.05% OINTMENT] 1 applic TOP TID #6 tube - Follow Up Plan Condition: STABLE Disposition: HOME/ ROUTINE Instructions: Deep Venous Thrombosis (DC) Additional Instructions: Patient is medically stable for discharge. Medication Instructions: 1. Eliquis 5mg, 2 tablets orally twice a day (2 tablets in the morning and 2 tablets at night) from 07/09/17 through 07/15/17, then 1 tablet orally twice a day (1 in the morning and 1 at night) starting 07/16/17. 2. Clobetasol 0.05% - apply to affected areas three times a day. GENERAL INSTRUCTIONS: 1. Follow up with [facility] in next 7 days by called for appointment. 2. Call [phone] to speak with vendor representatives to help pay for Eliquis until your insurance kicks in. 3. Follow-up with Director Of Casework Services/Oncologist, Marketing Sales Manager through our clinic until insurance kicks in. If symptoms return or worsen, please return to the ER. <Dago Damon - Last Filed: 07/08/17 20:52> Provider - Provider Date of Admission: 07/06/17 17:06 Attending physician: Dago Damon MD Hospital Course - Lab Results Lab Results: Most Recent Lab Values WBC 6.4 K/uL (4.8-10.8) 07/07/17 10:49 RBC 4.79 Mil/uL (4.40-5.90) 07/07/17 10:49 Hgb 11.6 g/dL (12.0-18.0) L 07/07/17 10:49 Hct 36.7 % (35.0-51.0) 07/07/17 10:49 MCV 76.6 fL (80.0-94.0) L 07/07/17 10:49 MCH 24.2 pg (27.0-31.0) L 07/07/17 10:49 MCHC 31.6 g/dL (33.0-37.0) L 07/07/17 10:49 RDW 16.5 % (11.5-14.5) H 07/07/17 10:49 Plt Count 338 K/uL (130-400) 07/07/17 10:49 MPV 8.0 fL (7.2-11.7) 07/07/17 10:49 Neut % (Auto) 66.3 % (50.0-75.0) 07/07/17 10:49 Lymph % (Auto) 16.6 % (20.0-40.0) L 07/07/17 10:49 Forest % (Auto) 10.9 % (0.0-10.0) H 07/07/17 10:49 Eos % (Auto) 5.5 % (0.0-4.0) H 07/07/17 10:49 Baso % (Auto) 0.7 % (0.0-2.0) 07/07/17 10:49 Neut # 4.3 K/uL (1.8-7.0) 07/07/17 10:49 Lymph # 1.1 K/uL (1.0-4.3) 07/07/17 10:49 Forest # 0.7 K/uL (0.0-0.8) 07/07/17 10:49 Eos # 0.4 K/uL (0.0-0.7) 07/07/17 10:49 Baso # 0.0 K/uL (0.0-0.2) 07/07/17 10:49 Retic Count 1.1 % (0.5-1.5) 07/07/17 10:49 PT 11.7 SECONDS (9.7-12.2) 07/06/17 16:48 INR 1.0 07/06/17 16:48 APTT 34 SECONDS (21-34) D 07/08/17 07:14 Sodium 135 mmol/L (132-148) 07/07/17 10:49 Potassium 3.8 mmol/L (3.6-5.2) 07/07/17 10:49 Chloride 104 mmol/L (98-107) 07/07/17 10:49 Carbon Dioxide 25 mmol/L (22-30) 07/07/17 10:49 Anion Gap 9 (10-20) L 07/07/17 10:49 BUN 7 mg/dL (9-20) L 07/07/17 10:49 Creatinine 0.7 mg/dL (0.8-1.5) L 07/07/17 10:49 Est GFR ( Amer) > 60 07/07/17 10:49 Est GFR (Non-Af Amer) > 60 07/07/17 10:49 Random Glucose 89 mg/dL (75-110) 07/07/17 10:49 Calcium 7.7 mg/dl (8.6-10.4) L 07/07/17 10:49 Iron 29 ug/dL (49-181) L 07/07/17 17:17 TIBC 307 ug/dL (250-450) 07/07/17 17:17 % Saturation 9 (20-55) L 07/07/17 17:17 Ferritin 85.6 ng/mL 07/07/17 10:49 Total Bilirubin 0.4 mg/dL (0.2-1.3) 07/07/17 10:49 AST 46 U/L (17-59) 07/07/17 10:49 ALT 52 U/L (21-72) 07/07/17 10:49 Alkaline Phosphatase 53 U/L (38-126) 07/07/17 10:49 Total Protein 7.9 g/dL (6.3-8.3) 07/07/17 10:49 Albumin 3.5 g/dL (3.5-5.0) 07/07/17 10:49 Globulin 4.3 gm/dL (2.2-3.9) H 07/07/17 10:49 Albumin/Globulin Ratio 0.8 (1.0-2.1) L 07/07/17 10:49 Vitamin B12 262 pg/mL (239-931) 07/07/17 10:49 Folate 10.0 ng/mL 07/07/17 10:49 Urine Color Yellow (YELLOW) 07/06/17 17:01 Urine Clarity Clear (Clear) 07/06/17 17:01 Urine pH 6.0 (5.0-8.0) 07/06/17 17:01 Ur Specific [place] 1.020 (1.003-1.030) 07/06/17 17:01 Urine Protein Negative mg/dL (NEGATIVE) 07/06/17 17:01 Urine Glucose (UA) Normal mg/dL (Normal) 07/06/17 17:01 Urine Ketones Negative mg/dL (NEGATIVE) 07/06/17 17:01 Urine Blood 1+ (NEGATIVE) H 07/06/17 17:01 Urine Nitrate Negative (NEGATIVE) 07/06/17 17:01 Urine Bilirubin Negative (NEGATIVE) 07/06/17 17:01 Urine Urobilinogen Normal mg/dL (0.2-1.0) 07/06/17 17:01 Ur Leukocyte Esterase Trace Reji/uL (Negative) 07/06/17 17:01 Urine WBC (Auto) 2 /hpf (0-5) 07/06/17 17:01 Urine RBC (Auto) 18 /hpf (0-3) H 07/06/17 17:01 Urine Bacteria Occ (<OCC) H 07/06/17 17:01 Attending/Attestation - Attestation I have personally seen and examined this patient.: Yes I have fully participated in the care of the patient.: Yes I have reviewed all pertinent clinical information, including history, physical exam and plan: Yes Notes (Text): 07/08/17 20:48 Patient was seen and examined at 7:45 AM Exam, discharge instructions were thoroughly gone over with the resident. Please note that patient was provided with 1 month supply of Eliquis. Also provided with Rx for Clobetasol Cream 3 tubes and Ointment 3 tubes which patient will have to purchase on his own and he stated to Health Promotion Manager Delilah that he would be able to afford. Dago Damon D.O.
[2017-07-09 04:37] LABS: MCH 24.1 pg (27.0-33.0); MCV 76.8 fL (80.0-100.0)
[2017-07-09] MEDS ORDERED: Influenza Vaccine 60 mcg/0.5 mL SYR (4YR UP) IM ONE (10:00)
[2017-07-09] MEDS ORDERED: Pneumococcal 23-Valent Vaccine IM ONE (10:00)
== END 2017-07-08 17:20 | disposition home or self-care (01) | DRG 300 ==
LOC: C.ER 14:44 → C.9E 17:06 → C.5S 07-07 06:56
PROVIDERS: ADMIT Family Medicine; ATTEND Family Medicine
DX: I82.442 Acute embolism and thrombosis of left tibial vein (principal); C84.00 Mycosis fungoides, unspecified site; D64.9 Anemia, unspecified; Z85.828 Personal history of other malignant neoplasm of skin; Z87.891 Personal history of nicotine dependence; R19.09 Other intra-abdominal and pelvic swelling, mass and lump

== ENCOUNTER 2017-11-25 13:40 | Emergency (ER) | payer SELFPAY ==
[2017-11-25 14:01] VITALS: BP 146/78; PULSE 97; RESP 18; TEMP 98.4; O2SAT 97
--- NOTE | 2017-11-25 14:24 | C.PDOC ---
History Of Present Illness 32 y/o male with hx dvt, on eliquis, and mycosis fungoides, c/o swelling to upper back x 1 week with pain to same area for last 2 days. pt wants it checked out, not sure what it is. denies fever, drainage. Time Seen by Provider: 11/25/17 14:13 Chief Complaint (Nursing): Abnormal Skin Integrity History Per: Patient History/Exam Limitations: no limitations Onset/Duration Of Symptoms: Days (7) Current Symptoms Are (Timing): Worse Location Of Injury: Left: Back (upper) Quality Of Symptoms: Painful, Swollen Severity: Mild Recent travel outside of the [place]: No Past Medical History Reviewed: Historical Data, Nursing Documentation, Vital Signs Vital Signs: Last Vital Signs Temp 98.4 F 11/25/17 13:58 Pulse 97 H 11/25/17 13:58 Resp 18 11/25/17 13:58 BP 146/78 11/25/17 13:58 Pulse Ox 97 11/27/17 09:59 - Medical History PMH: Fractures (L ankle with plate and 6 screws), Peripheral Edema Other PMH: dvt mycosis fungoides Family History: States: Unknown Family Hx - Social History Hx Alcohol Use: Yes (social) Hx Substance Use: No - Immunization History Hx Tetanus Toxoid Vaccination: No Hx Influenza Vaccination: No Hx Pneumococcal Vaccination: No Review Of Systems Constitutional: Negative for: Fever, Chills Skin: Positive for: Lesions (swollen mass to left upper back) Physical Exam - Physical Exam Appears: Non-toxic, No Acute Distress Skin: Warm, Dry, Other (diffusely dry skin with apprx 3 cm firm, mildly tender mobile mass to left upper back in medial trapzius area, no fluctuance, no overlying erythema or warmth. ) ED Course And Treatment O2 Sat by Pulse Oximetry: 97 Medical Decision Making Medical Decision Making: pt has appt with new oncologist Dr Pineda for 6.15 and looking for a microstrategy reports developer. pt advised to call office and try to make sooner appt. unclear if a lymph node or possible tumor from pt's mycosis. Disposition Counseled Patient/Family Regarding: Need For Followup - Disposition Referrals: Grace Braga MD [Staff Provider] - Disposition: HOME/ ROUTINE Disposition Time: 14:42 Condition: GOOD Additional Instructions: Please try to make sooner appointment with Dr Pineda. Keep an eye on it to watch for an increase in size. Return to ER for any worse symptoms,. fever, trouble swallowing or other concerns. Forms: [facility] ([place]), General Discharge Instructions - Clinical Impression Clinical Impression: Localized skin mass, lump, or swelling
== END 2017-11-25 15:08 | disposition home or self-care (01) ==
LOC: C.ER 13:40
DX: R22.2 Localized swelling, mass and lump, trunk (principal)

== ENCOUNTER 2017-12-13 10:03 | Emergency (ER) | payer BC ==
[2017-12-13 10:23] VITALS: BP 135/78; PULSE 78; RESP 16; TEMP 98.2; O2SAT 98
[2017-12-13] MEDS ORDERED: Lidocaine 2% MPF (5 ml) Inj ONE (10:42)
--- NOTE | 2017-12-13 10:55 | C.PDOC ---
History Of Present Illness 32 y/o M p/w R sided mass x 2.5 weeks that began draining pus yesterday. Patient denies fever, chills, significant pain, or trauma. He is already taking Clindamycin and Keflex for bilateral leg cellulitis. Time Seen by Provider: 12/13/17 10:33 Chief Complaint (Nursing): Abnormal Skin Integrity Past Medical History Vital Signs: Last Vital Signs Temp 98.2 F 12/13/17 10:20 Pulse 78 12/13/17 10:20 Resp 16 12/13/17 10:20 BP 135/78 12/13/17 10:20 Pulse Ox 98 12/13/17 10:59 - Medical History PMH: Fractures (L ankle with plate and 6 screws), Peripheral Edema Family History: States: Unknown Family Hx - Social History Hx Alcohol Use: Yes (social) Hx Substance Use: No - Immunization History Hx Tetanus Toxoid Vaccination: No Hx Influenza Vaccination: No Hx Pneumococcal Vaccination: No Review Of Systems Except As Marked, All Systems Reviewed And Found Negative. Constitutional: Negative for: Fever Respiratory: Negative for: Shortness of Breath Physical Exam - Physical Exam Additional Physical Exam Comments: Gen: NAD Head: NC/AT Chest: R sided abscess, indurated, fluctuant, central opening draining pus CV: Regular rate Lungs: CTA b/l Skin: As above Neuro: Alert ED Course And Treatment O2 Sat by Pulse Oximetry: 98 - Incision & Drainage Of Abscess Anesthesia: Lidocaine 2% Prep Used: Betadine Procedure: Incised W/Scalpel Blade#: (10), Drained Pus, Probed To Break Up Loculations, Packed W/Gauze, Cultures Obtained And Sent To Lab Medical Decision Making Medical Decision Making: Continue antibiotics, wound check in 48 hours. Disposition - Disposition Referrals: [facility] [Outside] Disposition: HOME/ ROUTINE Disposition Time: 10:54 Condition: STABLE Additional Instructions: Return to the ED or make an appointment for the wound care center for 48 hours from now. Instructions: Skin Abscess Forms: [facility] [employer] [facility] ([place]) - Clinical Impression Clinical Impression: Abscess
== END 2017-12-13 11:00 | disposition home or self-care (01) ==
LOC: C.ER 10:03
DX: L02.213 Cutaneous abscess of chest wall (principal)